=== PATIENT | male | born 1960 | race Caucasian/White ===

== ENCOUNTER → 2020-07-22 | Outpatient (CLI) | payer OTHER ==
--- NOTE | 2020-07-23 14:43 | MRI ---
EXAM DESCRIPTION: Brain w/wo Contrast: Magnetic Resonance Imaging. CLINICAL HISTORY: 59 years Male ASTROCYTOMA COMPARISON: None. TECHNIQUE: Multiplanar, high-field MRI, multiple conventional sequences, without and with Dotarem gadolinium IV contrast, 1 mL per 5 kg body weight. No adverse reactions. Multiple axial diffusion sequences. FINDINGS: Postoperative encephalomalacia, hypointense on FLAIR and T1 imaging and hyperintense on T2 imaging, involving most of the right temporal lobe and inferior right parietal lobe, associated with hyperintense T2 gliosis in the adjacent soft tissue. Less hyperintense on the FLAIR images and hypointense on the T1 images. Medial to the occipital horn of the right lateral ventricle, there is tissue consistent with gliosis. Small foci of enhancement noted within this tissue, which is also abutting the periventricular tissue. Minimal diffusion restriction is also noted within this tissue Hyperintense confluent FLAIR and T2-weighted signal in the periventricular white matter extending into the friend radiata parietal occipital and frontal lobes on the right and parietal and occipital lobes on the left. No hemorrhage, no cerebral edema, no mass-effect. No abnormal contrast enhancement. Abnormal signal in the left basal ganglia with a right basal ganglia, partially involved by scoliosis and encephalomalacia.. No hemorrhage, no cerebral edema, no mass-effect. Normal contrast enhancement. Normal signal in the brainstem and cerebellar hemispheres. Minimal cortical atrophy. Normal contrast enhancement. Concordance of the diffusion and non-diffusion sequences with no evidence of acute or subacute infarction. Cortical sulci, ventricles, and other CSF spaces, and the subdural spaces are unremarkable in the left cerebral hemisphere.. No effacement or displacement. No midline shift. No extra-axial hemorrhage. Normal contrast enhancement. Normal flow signal void in the major vessels of the [place], and the venous sinuses. IACs are symmetric bilaterally. Normal signal in the bilateral mastoid air cells. No mass effect in the bilateral Cerebellopontine angles. Normal contrast enhancement. Pituitary gland occupies most of the sella. Normal contrast enhancement. Base of the cerebellar tonsils is above the foramen magnum. Diffuse mucoperiosteal thickening in the paranasal sinuses. Small air-fluid level in the left sphenoid air cell.. The bony calvarium is intact. IMPRESSION: 1. Previous resection of large volume of the right temporal lobe and the adjacent right parietal lobe and anterior right occipital lobe. Predominantly encephalomalacia with Gliosis surrounding the encephalomalacia. Multiple small foci of enhancing tissue in the tissue abutting the posterior horn of the right lateral ventricle. This could represent postsurgical vascular structures versus recurrent tumor or inflammation. A small region of this tissue is demonstrating diffusion restriction. Recommend comparison to prior MRI scans with gadolinium IV contrast if available. 2. Bilateral periventricular white matter and centrum semiovale white matter showing changes most likely related to small vessel disease or aging. Greater on the right than the left. No hemorrhage or abnormal enhancement. 3. Chronic paranasal sinusitis with small focus of acute disease in the sphenoid air cells. Electronically signed by: Len Shabazz MD 07/23/2020 2:42 PM [facility]
== END ==
LOC: MRI 13:18
PROVIDERS: ATTEND Social Worker
DX: C71.9 Malignant neoplasm of brain, unspecified (principal); G40.109 Localization-related (focal) (partial) symptomatic epilepsy and epileptic syndromes with simple partial seizures, not intractable, without status epilepticus; G93.89 Other specified disorders of brain; R90.82 White matter disease, unspecified; J32.9 Chronic sinusitis, unspecified; J01.30 Acute sphenoidal sinusitis, unspecified; Z98.890 Other specified postprocedural states